=== PATIENT | female | born 1970 | race Caucasian/White ===

== ENCOUNTER 2016-12-18 11:43 | Emergency (ER) | payer MEDICAID ==
[~2016-12-18] VITALS: Ht 165.1 cm; Wt 72.6 kg
[~2016-12-18 11:43] MED LIST: ACTOS15 M1 PO; ACTOS30 M1 PO; ATARAX,VISTARIL50 MG PO; ATIVAN2 M1 PO; BENZTROPINE MESY1 MG PO; CLOZAPINE100 MG PO; CLOZAPINE25 MG PO; COGENTIN0.5 MG PO; DAILY VALUE1 EACH PO; DEEP SEA 45 ML45 ML NAS; DEPAKOTE500 MG PO; DIVALPROEX SOD500 MG PO; DULCOLAX STOOL100 MG PO; FEOSOL325 MG PO; GEODON20 M1 IM; GEODON80 MG PO; GLUCOPHAGE1000 MG PO; HALDOL5 MG PO; HYDROXYZINE HCL50 MG PO; INVEGA SUSTENN156 MG IM; INVEGA6 MG PO; JANUVIA100 MG PO; LATU40TA PO; LATU80TA PO; LINZESS145 MC1 PO; METFORMIN500 MG PO; MILK OF MA400 MG/5 M PO; MIRALAX17 GM/DOSE PO; OMEPRAZOLE20 M2 PO; PRAVASTATIN SOD10 MG PO; PRILOSEC20 M2 PO; PROZAC20 MG PO; SENNA LAX8.6 M1 PO; SYNTHROID25 MCG PO; TYLENOL325 M1 PO; VISTARIL25 M2 PO; VITAMIN D50000 I3 PO; ZESTRIL2.5 MG PO; ZYRTEC-D 5 MG-11 TE1 PO
[2016-12-18 12:22] LABS: LYMPH # 1.3 10*3/uL (1.3-4.4); LYMPH % 28.7 % (27.0-41.0); MEAN CELL VOLUME 91.8 fl (81.0-99.0); MEAN CORPUSCULAR HGB 29.8 pg (27.0-31.0); MEAN CORPUSCULAR HGB CONC 32.4 g/dl (33.0-37.0); MEAN PLATELET VOLUME 9.3 fl (9.6-12.3); MONO # 0.5 10*3/uL (0.1-1.0); NEUT # 2.6 10*3/uL (2.3-7.9); NEUT % 59.6 % (47.0-73.0); PLATELET COUNT AUTOMATED 200 10*3/uL (130-400); RED BLOOD COUNT 4.03 10*6/uL (4.10-5.10); RED CELL DISTRI WIDTH 13.5 % (0-14.5); WHITE BLOOD COUNT 4.4 10*3/uL (4.8-10.8)
[2016-12-18 12:30] LABS: ACT PARTIAL THROMBO TIME 27.9 SECONDS (20.8-31.5)
[2016-12-18 12:43] LABS: ALBUMIN 3.2 gm/dl (3.1-4.5); ALKALINE PHOSPHATASE 45 U/L (45-117); BUN 12 mg/dl (7-24); CHLORIDE 105 mmol/L (98-107); CPK 28 U/L (26-192); CREATININE 0.66 mg/dL (0.55-1.02); LIPASE 107 U/L (73-393); MAGNESIUM 1.9 mg/dL (1.5-2.1); POTASSIUM 4.2 mmol/L (3.5-5.1); SGOT/AST 5 IU/L (3-35); SGPT/ALT 9 U/L (12-78); SODIUM 141 mmol/L (136-145); VALPROIC ACID (DEPAKENE) 82.7 ug/ml (50-100)
[2016-12-18 12:46] LABS: ACETAMINOPHEN (TYLENOL) < 2.0 ug/ml (10-30); CKMB < 0.5 ng/ml (0.5-3.6); ETHYL ALCOHOL < 3.0 mg/dl (<3); TROPONIN I < 0.015 ng/ml (<0.045)
[2016-12-18 13:25] LABS: BILIRUBIN NEGATIVE (NEGATIVE); BLOOD NEGATIVE (NEGATIVE); CLARITY CLEAR (CLEAR); COLOR YELLOW (YELLOW); GLUCOSE NEGATIVE (NEGATIVE); KETONE TRACE (NEGATIVE); LEUKO ESTERASE NEGATIVE (NEGATIVE); NITRITE NEGATIVE (NEGATIVE); PH 5.5 (5.0-9.0); SPECIFIC GRAVITY <= 1.005 (1.005-1.030)
[2016-12-18 13:37] LABS: URINE AMPHETAMINES < 1000 (1000ng/ml); URINE BARBITURATES < 200 (200ng/ml); URINE BENZODIAZEPINES < 200 (200ng/ml); URINE CANNABINOIDS (THC) < 50 (50ng/ml); URINE COCAINE < 300 (300ng/ml); URINE METHADONE < 300 (300ng/ml); URINE OPIATES < 300 (300ng/ml)
[2016-12-18 13:40] LABS: WBC 0-2 wbc/hpf (0-5)
[2016-12-18 13:42] LABS: URINE PHENCYCLIDINE < 25 (25ng/ml)
== END 2016-12-18 16:54 ==
LOC: ED 11:43
PROVIDERS: Emergency Medicine
DX: F91.9 Conduct disorder, unspecified (principal); F41.9 Anxiety disorder, unspecified; F31.9 Bipolar disorder, unspecified; E11.9 Type 2 diabetes mellitus without complications; E03.9 Hypothyroidism, unspecified; E66.01 Morbid (severe) obesity due to excess calories; Z68.41 Body mass index [BMI] 40.0-44.9, adult; Z79.899 Other long term (current) drug therapy; Z98.890 Other specified postprocedural states; Z88.6 Allergy status to analgesic agent; Z91.011 Allergy to milk products; Z88.8 Allergy status to other drugs, medicaments and biological substances

== ENCOUNTER → 2018-07-27 | Outpatient (CLI) | payer MEDICAID | END | disposition home or self-care (01) | LOC: MAMMO 14:22 | DX: Z12.31 Encounter for screening mammogram for malignant neoplasm of breast (principal) ==

== ENCOUNTER → 2020-05-31 | Outpatient (CLI) | payer MEDICAID ==
[~2020-05-31] MED LIST changes: +CLOZARIL50 MG PO
== END | disposition home or self-care (01) ==
LOC: MAMMO 05-02 10:30
PROVIDERS: ATTEND Family Medicine
DX: Z12.31 Encounter for screening mammogram for malignant neoplasm of breast (principal); N64.89 Other specified disorders of breast

== ENCOUNTER → 2020-06-18 | Day surgery (SDC) | payer MEDICAID ==
[~2020-06-18] VITALS: Ht 160 cm; Wt 102.5 kg
[2020-06-18 07:20] VITALS: BP 133/80
[2020-06-18 08:32] VITALS: BP 139/70
[2020-06-18 08:47] VITALS: BP 120/79
[2020-06-18 09:02] VITALS: BP 119/75
== END ==
LOC: SDC 06-14 08:45
PROVIDERS: ATTEND Surgery
DX: Z12.11 Encounter for screening for malignant neoplasm of colon (principal); F20.0 Paranoid schizophrenia; F41.9 Anxiety disorder, unspecified; E03.9 Hypothyroidism, unspecified; F31.9 Bipolar disorder, unspecified; E78.00 Pure hypercholesterolemia, unspecified; F43.10 Post-traumatic stress disorder, unspecified; E66.9 Obesity, unspecified; Z98.890 Other specified postprocedural states

== ENCOUNTER → 2021-06-17 | Outpatient (CLI) | payer MEDICAID | END | disposition home or self-care (01) | LOC: MAMMO 06-03 11:00 | PROVIDERS: ATTEND Nurse Practitioner Women's Health | DX: Z12.31 Encounter for screening mammogram for malignant neoplasm of breast (principal); N64.89 Other specified disorders of breast ==